=== PATIENT | male | born 1950 | race Caucasian/White ===

== ENCOUNTER 2023-11-26 18:59 | Emergency (ER) | payer MEDICARE ==
[2023-11-26 19:19] VITALS: RESP 18; TEMP 97.8
--- NOTE | 2023-11-26 19:36 | ED ---
Skin/Abscess/FB HPI - General Chief complaint: Skin/Abscess/Foreign Body Stated complaint: Poss abclinda with mersa Time Seen by Provider: 11/26/23 19:34 Source: patient, RN notes reviewed Mode of arrival: ambulatory Limitations: no limitations - History of Present Illness Initial comments: 73 year old male presenting to the ER presenting to the ER with a chief complaint of groin abscesses. Patient was seen by PCP on November 16 and started on Bactrim. Cultures were obtained at that time. Cultures were positive for MRSA. PCP called patient today telling him to report to the ER for possible lancing of abscess. Patient does report an improvement of symptoms. Denies any fevers or chills. - Related Data Previous Rx's Medication Instructions Recorded Cephalexin [Keflex] 500 mg PO Q6HR #40 cap 11/26/23 Allergies Allergy/AdvReac Type Severity Reaction Status Date / Time No Known Allergies Allergy Verified 11/26/23 19:20 Review of Systems ROS Statement: Those systems with pertinent positive or pertinent negative responses have been documented in the HPI. ROS Other: All systems not noted in ROS Statement are negative. Past Medical History Past Medical History: Diabetes Mellitus, Hyperlipidemia, Hypertension, Prostate Disorder Additional Past Medical History / Comment(s): neuropathy History of Any Multi-Drug Resistant Organisms: MRSA Additional Past Surgical History / Comment(s): bilateral knee replacements; Gastric bypass with sleeve; Past Psychological History: No Psychological Hx Reported Smoking Status: Former smoker Past Alcohol Use History: None Reported Past Drug Use History: None Reported General Exam - General Exam Comments Initial Comments: Visual Physical Exam Vital signs reviewed General: Well-appearing, nontoxic, no acute distress. Head: Normocephalic, atraumatic Eyes: PERRLA, EOMI ENT: Airway patent Chest: Nonlabored breathing Skin: No visual rash, normal skin tone Neuro: Alert and oriented 3 Musculoskeletal: No gross abnormalities Limitations: no limitations General appearance: alert, in no apparent distress Respiratory exam: Present: normal lung sounds bilaterally. Absent: respiratory distress, wheezes, rales, rhonchi, stridor Cardiovascular Exam: Present: regular rate, normal rhythm, normal heart sounds. Absent: systolic murmur, diastolic murmur, rubs, gallop, clicks Skin exam: Present: warm, dry, intact, normal color, other (Healed abscess to left groin. No purulent drainage or erythema. Mild purulent drainage to right posterior thigh.) Course Vital Signs 11/26/23 11/26/23 19:14 21:58 Temperature 97.8 F 97.8 F Pulse Rate 67 72 Respiratory 18 18 Rate Blood Pressure 115/72 116/74 O2 Sat by Pulse 94 L 94 L Oximetry Procedures - Incision & Drainage Consent Obtained: verbal consent Indication: abscess Site: lower extremity (right) Size (cm): 2 Anesthetic Used: lidocaine 1%, without epi Amount (mLs): 3 I&D Cleaning Method: Alcohol Wipe Sterile Field Used?: Yes Scalpel Used: #11 Ultrasound used: No Needle Aspiration Performed?: Yes Irrigation Performed?: No I&D Drainage Obtained: Pus, Blood Culture Obtained?: Yes Patient Tolerated Procedure: well Medical Decision Making - Medical Decision Making I performed the quick note portion of this chart. Electronically signed by Brett Edmonds PA-C Was pt. sent in by a medical professional or institution (RAMAN Prescott, CLIENT SERVICES REPRESENTATIVE, urgent care, hospital, or alf...) When possible be specific @ -No Did you speak to anyone other than the patient for history (EMS, parent, family, police, friend...)? What history was obtained from this source @ - aiding in HPI. Did you review nursing and triage notes (agree or disagree)? Why? @ -I reviewed and agree with nursing and triage notes Were old charts reviewed (outside hosp., previous admission, EMS record, old EKG, old radiological studies, urgent care reports/EKG's, alf records)? Report findings @ -No old charts were reviewed Differential Diagnosis (chest pain, altered mental status, abdominal pain women, abdominal pain men, vaginal bleeding, weakness, fever, dyspnea, syncope, headache, dizziness, GI bleed, back pain, seizure, CVA, palpatations, mental health, musculoskeletal)? @ -Cellulitis, abscess, cyst This is not meant to be all-inclusive EKG interpreted by me (3pts min.). @ -None X-rays interpreted by me (1pt min.). @ -None done CT interpreted by me (1pt min.). @ -None done U/S interpreted by me (1pt. min.). @ -None done What testing was considered but not performed or refused? (CT, X-rays, U/S, labs)? Why? @ -None What meds were considered but not given or refused? Why? @ -None Did you discuss the management of the patient with other professionals (professionals i.e. , PA, CLIENT SERVICES REPRESENTATIVE, lab, RT, psych nurse, social media marketing manager, drapery head former, teacher, medical scientific officer, window caser)? Give summary @ -No Was smoking cessation discussed for >3mins.? @ -No Was critical care preformed (if so, how long)? @ -No Were there social determinants of health that impacted care today? How? (Homelessness, low income, unemployed, alcoholism, drug addiction, transportation, low edu. Level, literacy, decrease access to med. care, halfway, rehab)? @ -No Was there de-escalation of care discussed even if they declined (Discuss DNR or withdrawal of care, Hospice)? DNR status @ -No What co-morbidities impacted this encounter? (DM, HTN, Smoking, COPD, CAD, Cancer, CVA, ARF, Chemo, Hep., AIDS, mental health diagnosis, sleep apnea, morbid obesity)? @ -None Was patient admitted / discharged? Hospital course, mention meds given and route, prescriptions, significant lab abnormalities, going to OR and other pertinent info. @ -Discharge. 73-year-old male presented to the ER with a chief complaint of groin abscess. History and physical exam completed. Vitals stable. Exam remarkable for a 2 cm superficial abscess to right posterior thigh. Purulent drainage present. There is also a healed abscess to left groin. No purulent drainage or surrounding erythema. Patient in no signs of acute distress and nontoxic-appearing. I&D performed on posterior leg abscess. Culture obtained. Advised patient to continue taking Bactrim as prescribed. Keflex added. Advise close follow-up with PCP. Strict return parameters discussed. Patient discharged in stable condition. Patient and verbally expressed understanding agree with care plan. Case discussed with ED attending, Dr. Roberts. Undiagnosed new problem with uncertain prognosis? @ -No Drug Therapy requiring intensive monitoring for toxicity (Heparin, Nitro, Insulin, Cardizem)? @ -No Were any procedures done? @ -No Diagnosis/symptom? @ -Abscess Acute, or Chronic, or Acute on Chronic? @ -Acute Uncomplicated (without systemic symptoms) or Complicated (systemic symptoms)? @ -Uncomplicated Side effects of treatment? @ -No Exacerbation, Progression, or Severe Exacerbation? @ -No Poses a threat to life or bodily function? How? (Chest pain, USA, [place], pneumonia, PE, COPD, DKA, ARF, appy, cholecystitis, CVA, Diverticulitis, Homicidal, Suicidal, threat to staff... and all critical care pts) @ -No Disposition Clinical Impression: Abscess Disposition: HOME SELF-CARE Condition: Stable Instructions (If sedation given, give patient instructions): Abscess Incision and Drainage (ED), Abscess (ED) Additional Instructions: Continue taking Bactrim as prescribed. Start taking Keflex as prescribed. Return to the ER for any new or worsening concerns. Follow-up with PCP. Prescriptions: Cephalexin [Keflex] 500 mg PO Q6HR #40 cap Is patient prescribed a controlled substance at d/c from ED?: No Referrals: Nonstaff,Physician [Primary Care Provider] - 1-2 days Time of Disposition: 21:11
[2023-11-26] MEDS: LIDOCAINE 1% INJ 10MG/ML (20 ML MDV) SQ ONE (20:37)
[2023-11-26] MEDS: CEPHALEXIN 500 MG CAP PO STA (21:52)
[2023-11-26 21:59] VITALS: BP 116/74; PULSE 72
== END 2023-11-26 21:58 | disposition home or self-care (01) ==
LOC: EC 18:59
DX: L02.214 Cutaneous abscess of groin (principal); B95.62 Methicillin resistant Staphylococcus aureus infection as the cause of diseases classified elsewhere; Z87.891 Personal history of nicotine dependence
CPT/HCPCS: 87070; 87205; 87077; 87186; 99283; 10060; J2001

== ENCOUNTER 2024-11-12 13:25 | Inpatient (IN) | payer MEDICARE ==
[2024-11-12 13:33] LABS: Glucose,Whole Blood 178 mg/dL (70-110)
--- NOTE | 2024-11-12 13:44 | ED ---
General Adult HPI - General Chief complaint: Recheck/Abnormal Lab/Rx Stated complaint: Weakness Time Seen by Provider: 11/12/24 13:36 Source: patient Mode of arrival: wheelchair - History of Present Illness Initial comments: Dictation was produced using [employer] dictation software. please excuse any grammatical, word or spelling errors. Chief Complaint: 74-year-old male presents with chills History of Present Illness: Patient is a 74-year-old male with multiple comorbidities including diabetes dyslipidemia hypertension. States that since this morning he has had chills. No obvious sick contacts. States that he had similar symptoms in the past after being diagnosed with UTI. Initially went to an urgent care to have his urine tested. States that his urine was found to be clean. He was then referred to the emergency department for further care. Patient N denies s any cough. No shortness of breath. States that he has an ache to his lower back, also headache. States that he gets this whenever he gets sick. No diarrhea. No abdominal pain. No rash The ROS documented in this emergency department record has been reviewed and confirmed by me. Those systems with pertinent positive or negative responses have been documented in the HPI. All other systems are other negative and/or noncontributory. - Related Data Previous Rx's Medication Instructions Recorded Cephalexin [Keflex] 500 mg PO Q6HR #40 cap 11/26/23 Allergies Allergy/AdvReac Type Severity Reaction Status Date / Time vicoden AdvReac Hallucinati Uncoded 11/12/24 13:34 ons Review of Systems ROS Statement: Those systems with pertinent positive or pertinent negative responses have been documented in the HPI. ROS Other: All systems not noted in ROS Statement are negative. Past Medical History Past Medical History: Diabetes Mellitus, Hyperlipidemia, Hypertension, Prostate Disorder Additional Past Medical History / Comment(s): neuropathy History of Any Multi-Drug Resistant Organisms: MRSA Date of last positivie culture/infection: 11/26/23 MDRO Source:: right thigh/groin Additional Past Surgical History / Comment(s): bilateral knee replacements; Anthony antonio bypass with sleeve; Past Psychological History: No Psychological Hx Reported Smoking Status: Former smoker Past Alcohol Use History: None Reported Past Drug Use History: None Reported General Exam - General Exam Comments Initial Comments: PHYSICAL EXAM: General Impression: Alert and oriented x3, not in acute distress, tremulous HEENT: Normocephalic atraumatic, extra-ocular movements intact, pupils equal and reactive to light bilaterally, mucous membranes moist. Cardiovascular: Heart regular rate and rhythm Chest: Able to complete full sentences, no retractions, no tachypnea Abdomen: abdomen soft, non-tender, non-distended, no organomegaly Musculoskeletal: Pulses present and equal in all extremities, no peripheral ricarda ma Motor: no focal deficits noted Neurological: CN II-XII grossly intact, no focal motor or sensory deficits noted Skin: Intact with no visualized rashes Psych: Normal affect and mood Course Vital Signs 11/12/24 11/12/24 11/12/24 13:26 15:00 15:07 Temperature 100.8 F H 100.1 F H Pulse Rate 133 H 114 H Respiratory 38 H 22 Rate Blood Pressure 177/63 120/63 O2 Sat by Pulse 96 95 Oximetry EKG Findings - EKG Comments: EKG Findings:: My EKG interpretation: Ventricular rate 129, sinus tachycardia,. 191, cures 1 2, QTc 452. No UT prolongation, no QTC prolongation, no ST or T- wave changes noted. Overall, this EKG is unremarkable Medical Decision Making - Medical Decision Making Was pt. sent in by a medical professional or institution (, PA, FIRE TECHNICIAN, urgent care, hospital, or penitentiary...) When possible be specific @ -No Did you speak to anyone other than the patient for history (EMS, parent, family, police, friend...)? What history was obtained from this source @ -No Did you review nursing and triage notes (agree or disagree)? Why? @ -I reviewed and agree with nursing and triage notes Were old charts reviewed (outside hosp., previous admission, EMS record, old EKG, old radiological studies, urgent care reports/EKG's, penitentiary records)? Report findings @ -No old charts were reviewed Differential Diagnosis (chest pain, altered mental status, abdominal pain women, abdominal pain men, vaginal bleeding, musculoskeletal, weakness, fever, dyspnea, syncope, headache, dizziness, GI bleed, back pain, seizure, CVA, palpatations, mental health)? @ -Differential Fever: Pneumonia, viral URI, endocarditis, myocarditis, pericarditis, otitis, sinusitis, peritonsillar Abscess, retropharyngeal Abscess, epiglottitis, peritonitis, appendicitis, Ethel cystitis, diverticulitis, hepatitis, colitis, UTI, PID, TOA, pyelonephritis, prostatitis, epididymitis, meningitis, encephalitis, pulmonary embolism, CVA, thyroid storm, pancreatitis, adrenal crisis, cavernous sinus thrombosis, this is not meant to be an all-inclusive list. EKG interpreted by me (3pts min.). @ -See above X-rays interpreted by me (1pt min.). @ -Chest x-ray is nonacute CT interpreted by me (1pt min.). @ -None done U/S interpreted by me (1pt. min.). @ -None done What testing was considered but not performed or refused? (CT, X-rays, U/S, labs)? Why? @ -None What meds were considered but not given or refused? Why? @ -None Was smoking cessation discussed for >3mins.? @ -No Were there social determinants of health that impacted care today? How? (Homelessness, low income, unemployed, alcoholism, drug addiction, transportation, low edu. Level, literacy, decrease access to med. care, long term, rehab)? @ -No Was there de-escalation of care discussed even if they declined (Discuss DNR or withdrawal of care, Hospice)? DNR status @ -No What co-morbidities impacted this encounter? (DM, HTN, Smoking, COPD, CAD, Cancer, CVA, ARF, Chemo, Hep., AIDS, mental health diagnosis, sleep apnea, morbid obesity)? @ -Diabetes Was patient admitted / discharged? Hospital course, mention meds given and route, prescriptions, significant lab abnormalities, going to OR and other pertinent info. @ -74-year-old male presents emergency department constitutional symptoms. Low-grade temperature 100.8 heart rate 133 and respiratory rate of 38. Does not have any focal exam findings or focal complaints. Laboratory evaluation obtained showing leukocytosis of 16. Lactic acidosis 3.5. Urinalysis unremarkable. Viral testing negative. Chest x-ray nonacute. Clinical presentation consistent with SIRS. There is some concern of bacteremia. Patient covered broad-spectrum antibiotics. Case discussed with hospitalist for admission. Patient does not meet criteria for severe sepsis given that lactic acid is below 4 patient not hypotensive. Did you discuss the management of the patient with other professionals (anjana stanford i.e., Dr., PA, FIRE TECHNICIAN, lab, RT, psych nurse, social studies department chair, outboard motor tester, teacher, ethics officer, correctional case records supervisor)? Give summary @ -See above Was critical care preformed (if so, how long)? @ -No Undiagnosed new problem with uncertain prognosis? @ -No Drug Therapy requiring intensive monitoring for toxicity (Heparin, Nitro, Insulin, Cardizem)? @ -No Were any procedures done? @ -No Diagnosis/symptom? Acute, or Chronic, or Acute on Chronic? Uncomplicated (without systemic symptoms) or Complicated (systemic symptoms)? @ -SIRS/sepsis Side effects of treatment? @ -No Exacerbation, Progression, or Severe Exacerbation? @ -No Poses a threat to life or bodily function? How? (Chest pain, USA, [place], pneumonia, PE, COPD, DKA, ARF, appy, cholecystitis, CVA, Diverticulitis, Homicidal, Suicidal, threat to staff... and all critical care pts) @ -yes - Lab Data Result diagrams: 11/12/24 14:03 11/12/24 14:03 Lab Results 11/12/24 11/12/24 11/12/24 Range/Units 13:30 13:31 14:03 WBC 16.49 H (4.50-10.00) 10*3/uL RBC 4.41 (4.40-5.60) 10*6/uL Hgb 14.7 (13.0-17.0) g/dL Hct 43.6 (39.6-50.0) % MCV 98.9 H (80.0-97.0) fL MCH 33.3 H (27.0-32.0) pg MCHC 33.7 (32.0-37.0) g/dL Plt Count 243 (140-440) 10*3/uL MPV 8.8 L (9.5-12.2) fL Immature Gran % (Auto) 0.4 % Neutrophils % 93.0 % Lymphocytes % 2.7 % Monocytes % 3.2 % Eosinophils % 0.3 % Basophils % 0.4 % Immature Gran # 0.07 H (0.00-0.04) 10*3/uL Neutrophils # 15.34 H (1.80-7.70) 10*3/uL Lymphocytes # 0.44 L (0.90-5.00) 10*3/uL Monocytes # 0.52 (0.20-1.00) 10*3/uL Eosinophils # 0.05 (0.04-0.35) 10*3/uL Basophils # 0.07 (0.00-0.10) 10*3/uL PT (10.0-12.5) sec INR (<1.2) APTT (22.0-30.0) sec Sodium (137-145) mmol/L Potassium (3.5-5.1) mmol/L Chloride (98-107) mmol/L Carbon Dioxide (22-30) mmol/L Anion Gap mmol/L BUN (9-20) mg/dL Creatinine (0.66-1.25) mg/dL Est GFR (CKD-EPI)AfAm (>60 ml/min/1.73 sqM) Est GFR (CKD-EPI)NonAf (>60 ml/min/1.73 sqM) Glucose (74-99) mg/dL POC Glucose (mg/dL) 178 H (70-110) mg/dL POC Glu Assembler For Puller Over Machine ID [employer] Plasma Lactic Acid Fan (0.7-2.0) mmol/L Calcium (8.4-10.2) mg/dL Total Bilirubin (0.2-1.3) mg/dL AST (17-59) U/L ALT (4-49) U/L Alkaline Phosphatase (38-126) U/L Total Protein (6.3-8.2) g/dL Albumin (3.5-5.0) g/dL Urine Color Light Yellow Urine Appearance Clear (Clear) Urine pH 6.5 (5.0-8.0) Ur Specific [place] 1.014 (1.001-1.035) Urine Protein Negative (Negative) Urine Glucose (UA) Negative (Negative) Urine Ketones Negative (Negative) Urine Blood Trace H (Negative) Urine Nitrite Negative (Negative) Urine Bilirubin Negative (Negative) Urine Urobilinogen <2.0 (<2.0) mg/dL Ur Leukocyte Esterase Negative (Negative) Urine RBC 4 (0-5) /hpf Urine WBC <1 (0-5) /hpf Ur Squamous Epith Cells <1 (0-4) /hpf Influenza Type A (PCR) (Not Detectd) Influenza Type B (PCR) (Not Detectd) RSV (PCR) (Not Detectd) SARS-CoV-2 (PCR) (Not Detectd) 11/12/24 11/12/24 11/12/24 Range/Units 14:03 14:03 14:03 WBC (4.50-10.00) 10*3/uL RBC (4.40-5.60) 10*6/uL Hgb (13.0-17.0) g/dL Hct (39.6-50.0) % MCV (80.0-97.0) fL MCH (27.0-32.0) pg MCHC (32.0-37.0) g/dL Plt Count (140-440) 10*3/uL MPV (9.5-12.2) fL Immature Gran % (Auto) % Neutrophils % % Lymphocytes % % Monocytes % % Eosinophils % % Basophils % % Immature Gran # (0.00-0.04) 10*3/uL Neutrophils # (1.80-7.70) 10*3/uL Lymphocytes # (0.90-5.00) 10*3/uL Monocytes # (0.20-1.00) 10*3/uL Eosinophils # (0.04-0.35) 10*3/uL Basophils # (0.00-0.10) 10*3/uL PT 12.1 (10.0-12.5) sec INR 1.1 (<1.2) APTT 21.6 L (22.0-30.0) sec Sodium 134 L (137-145) mmol/L Potassium 3.7 (3.5-5.1) mmol/L Chloride 96 L (98-107) mmol/L Carbon Dioxide 24 (22-30) mmol/L Anion Gap 14 mmol/L BUN 16 (9-20) mg/dL Creatinine 0.75 (0.66-1.25) mg/dL Est GFR (CKD-EPI)AfAm >90 (>60 ml/min/1.73 sqM) Est GFR (CKD-EPI)NonAf 89 (>60 ml/min/1.73 sqM) Glucose 199 H (74-99) mg/dL POC Glucose (mg/dL) (70-110) mg/dL POC Glu Assembler For Puller Over Machine ID Plasma Lactic Acid Fan 3.5 H* (0.7-2.0) mmol/L Calcium 10.2 (8.4-10.2) mg/dL Total Bilirubin 1.3 (0.2-1.3) mg/dL AST 40 (17-59) U/L ALT 29 (4-49) U/L Alkaline Phosphatase 127 H (38-126) U/L Total Protein 7.9 (6.3-8.2) g/dL Albumin 4.4 (3.5-5.0) g/dL Urine Color Urine Appearance (Clear) Urine pH (5.0-8.0) Ur Specific [place] (1.001-1.035) Urine Protein (Negative) Urine Glucose (UA) (Negative) Urine Ketones (Negative) Urine Blood (Negative) Urine Nitrite (Negative) Urine Bilirubin (Negative) Urine Urobilinogen (<2.0) mg/dL Ur Leukocyte Esterase (Negative) Urine RBC (0-5) /hpf Urine WBC (0-5) /hpf Ur Squamous Epith Cells (0-4) /hpf Influenza Type A (PCR) (Not Detectd) Influenza Type B (PCR) (Not Detectd) RSV (PCR) (Not Detectd) SARS-CoV-2 (PCR) (Not Detectd) 11/12/24 Range/Units 14:03 WBC (4.50-10.00) 10*3/uL RBC (4.40-5.60) 10*6/uL Hgb (13.0-17.0) g/dL Hct (39.6-50.0) % MCV (80.0-97.0) fL MCH (27.0-32.0) pg MCHC (32.0-37.0) g/dL Plt Count (140-440) 10*3/uL MPV (9.5-12.2) fL Immature Gran % (Auto) % Neutrophils % % Lymphocytes % % Monocytes % % Eosinophils % % Basophils % % Immature Gran # (0.00-0.04) 10*3/uL Neutrophils # (1.80-7.70) 10*3/uL Lymphocytes # (0.90-5.00) 10*3/uL Monocytes # (0.20-1.00) 10*3/uL Eosinophils # (0.04-0.35) 10*3/uL Basophils # (0.00-0.10) 10*3/uL PT (10.0-12.5) sec INR (<1.2) APTT (22.0-30.0) sec Sodium (137-145) mmol/L Potassium (3.5-5.1) mmol/L Chloride (98-107) mmol/L Carbon Dioxide (22-30) mmol/L Anion Gap mmol/L BUN (9-20) mg/dL Creatinine (0.66-1.25) mg/dL Est GFR (CKD-EPI)AfAm (>60 ml/min/1.73 sqM) Est GFR (CKD-EPI)NonAf (>60 ml/min/1.73 sqM) Glucose (74-99) mg/dL POC Glucose (mg/dL) (70-110) mg/dL POC Glu Assembler For Puller Over Machine ID Plasma Lactic Acid Fan (0.7-2.0) mmol/L Calcium (8.4-10.2) mg/dL Total Bilirubin (0.2-1.3) mg/dL AST (17-59) U/L ALT (4-49) U/L Alkaline Phosphatase (38-126) U/L Total Protein (6.3-8.2) g/dL Albumin (3.5-5.0) g/dL Urine Color Urine Appearance (Clear) Urine pH (5.0-8.0) Ur Specific [place] (1.001-1.035) Urine Protein (Negative) Urine Glucose (UA) (Negative) Urine Ketones (Negative) Urine Blood (Negative) Urine Nitrite (Negative) Urine Bilirubin (Negative) Urine Urobilinogen (<2.0) mg/dL Ur Leukocyte Esterase (Negative) Urine RBC (0-5) /hpf Urine WBC (0-5) /hpf Ur Squamous Epith Cells (0-4) /hpf Influenza Type A (PCR) Not Detected (Not Detectd) Influenza Type B (PCR) Not Detected (Not Detectd) RSV (PCR) Not Detected (Not Detectd) SARS-CoV-2 (PCR) Not Detected (Not Detectd) Disposition Clinical Impression: SIRS (systemic inflammatory response syndrome) Disposition: ADMITTED IP TO THIS [facility] Condition: Fair Referrals: Nonstaff,Physician [Primary Care Provider] - 1-2 days Decision Time: 15:49
[2024-11-12 13:45] LABS: Bilirubin,Urine Negative (Negative); Blood,Urine Trace (Negative); Color,Urine Light Yellow; Glucose,Urine (UA) Negative (Negative); Ketones,Urine Negative (Negative); Leukocyte Esterase,Urine Negative (Negative); Nitrite,Urine Negative (Negative); PH, Urine 6.5 (5.0-8.0); Protein,Urine Negative (Negative); RBC,Urine 4 /hpf (0-5); Specific Gravity,Urine 1.014 (1.001-1.035); Squamous Epithelial Cell,Urine <1 /hpf (0-4); Urobilinogen,Urine <2.0 mg/dL (<2.0); WBC,Urine <1 /hpf (0-5)
[2024-11-12] MEDS: ACETAMINOPHEN TAB 500 MG TAB PO STA (14:01)
[2024-11-12] MEDS: LACTATED RINGERS 1,000 ML IV SCH ×3 (14:01→18:01)
[2024-11-12 14:08] LABS: Basophils # (A) 0.07 10*3/uL (0.00-0.10); Basophils % (A) 0.4 %; Eosinophils # (A) 0.05 10*3/uL (0.04-0.35); Eosinophils % (A) 0.3 %; HCT 43.6 % (39.6-50.0); HGB 14.7 g/dL (13.0-17.0); Lymphocytes # (A) 0.44 10*3/uL (0.90-5.00); Lymphocytes % (A) 2.7 %; MCH 33.3 pg (27.0-32.0); MCHC 33.7 g/dL (32.0-37.0); MCV 98.9 fL (80.0-97.0); Monocytes # (A) 0.52 10*3/uL (0.20-1.00); Monocytes % (A) 3.2 %; Neutrophils # (A) 15.34 10*3/uL (1.80-7.70); Neutrophils % (A) 93.0 %; Platelet Count 243 10*3/uL (140-440); RBC 4.41 10*6/uL (4.40-5.60); RDW 12.9 % (11.5-14.5); WBC 16.49 10*3/uL (4.50-10.00)
[2024-11-12 14:23] LABS: ALT 29 U/L (4-49); AST 40 U/L (17-59); African American GFR (CKD) >90 (>60 ml/min/1.73 sqM); Albumin 4.4 g/dL (3.5-5.0); Alkaline Phosphatase 127 U/L (38-126); Anion Gap 14 mmol/L; Blood Urea Nitrogen 16 mg/dL (9-20); Calcium 10.2 mg/dL (8.4-10.2); Carbon Dioxide 24 mmol/L (22-30); Chloride 96 mmol/L (98-107); Glucose 199 mg/dL (74-99); INR 1.1 (<1.2); Non-African American GFR(CKD) 89 (>60 ml/min/1.73 sqM); Partial Thromboplastin Time 21.6 sec (22.0-30.0); Potassium 3.7 mmol/L (3.5-5.1); Prothrombin Time 12.1 sec (10.0-12.5); Sodium 134 mmol/L (137-145); Total Protein 7.9 g/dL (6.3-8.2)
[2024-11-12 14:44] LABS: RSV Not Detected (Not Detectd)
--- NOTE | 2024-11-12 15:34 | XR ---
EXAMINATION TYPE: XR chest 2V DATE OF EXAM: 11/12/2024 2:55 PM COMPARISON: None CLINICAL INDICATION: Male, 74 years old with history of Fever; [facility] TECHNIQUE: XR chest 2V Frontal and lateral views of the chest. FINDINGS: Lungs/Pleura: There is no evidence of pleural effusion, focal consolidation, or pneumothorax. Pulmonary vascularity: Unremarkable. Heart/mediastinum: Cardiomediastinal silhouette is unremarkable. Musculoskeletal: No acute osseous pathology. IMPRESSION: No acute cardiopulmonary disease/process. [facility], , 11/12/2024 3:32 PM
[2024-11-12] MEDS ORDERED: VANCOMYCIN IV PER PHARMACY 1 EACH MISC MISCELLANE PRN (15:39)
[2024-11-12] MEDS ORDERED: NALOXONE 0.4 MG/ML 1 ML VIAL IV PRN (15:46)
[2024-11-12] MEDS ORDERED: ACETAMINOPHEN TAB 325 MG TAB PO PRN (15:46)
[2024-11-12] MEDS ORDERED: PIPERACILLIN-TAZOBACTAM 3.375 GM in SODIUM CHLORIDE 0.9% 100 ML IVPB SCH (16:00)
[2024-11-12] MEDS ORDERED: SODIUM CHLORIDE 0.9% 1,000 ML IV SCH (16:00)
[2024-11-12] MEDS ORDERED: DEXTROSE 50% SYRINGE 50 ML IVP PRN ×2 (16:05)
--- NOTE | 2024-11-12 16:45 | P.HPIM ---
History of Present Illness H&P Date: 11/12/24 Patient is a 74 years old male with past medical history of type II DM on Ozempic last A1c 5.7 reportedly, HLD, morbid obesity BMI 47 HTN, BPH, history of bariatric surgery, MRSA infection, history of groin abscess 11/2023, who presented to the ER for feeling sick, chills. Earlier he was evaluated in the urgent care where his urine was tested and was negative for UTI, patient was sent to the ER. He only complains of chills that started this morning. Some associated lower back pain , that is now resolved but he has discomfort from sitting in a bed. no abdominal pain, dysuria, nausea,vo miting, constipation, diarrhea, skin rashes, joint pain, SOB, CP. No recent traveling, swimming. He does report that he does not always feel the origin to urinate, when he does urinate, he only can get one 1-1/2 caps of urine approximately. He does report that he had MRSA infection in his groin with some abscesses, right now does not have any symptoms or discomfort in that area, on exam there was no signs of lymphadenopathy or skin damage, abscesses. He is currently getting treatment for MRSA colonization with his PCP. Patient was febrile 100.8, tachycardic 130s, blood pressure was elevated 127/63, SpO2 92% on room air. Blood work revealed leukocytosis 16.4, normal hemoglobin and platelet count, sodium 134, normal potassium, bicarb 24, creatinine 0.75, glucose elevated 189, lactic acid 3.5, AST and ALT WNL, UA negative for UTI, viral panel negative. Chest x-ray showed no acute process. Patient was provided with broad-spectrum antibiotics vancomycin and Zosyn, admitted for further management of sepsis with unknown source. Antibiotics changed to vancomycin plus cefepime, will provide with additional 2 L of LR and LR at 125 cc/h for 1 more liter to complete sepsis fluid protocol given that patient's blood pressure was elevated on admission. Pertinent positives and negatives as discussed in HPI, a complete review of systems was performed and all other systems are negative. Patient seen and examined at bedside. Vital signs reviewed General: nontoxic, no distress, appears at stated age, morbidly obese Derm: warm, dry Head: atraumatic, normocephalic, symmetric Eyes: EOMI, no lid lag, anicteric sclera, pupils equal round reactive to light ENT: Nose and ears atraumatic Neck: No thyromegaly, supple Mouth: no lip lesion, mucus membranes moist Cardiovascular: S1S2 reg, no murmur, no edema Lungs: clear to auscultation bilateral, no rhonchi, no rales, no wheeze, no acc essory muscle use Abdominal: soft, nontender to palpation, no guarding, no appreciable organomegaly Ext: no gross muscle atrophy, muscle strength muscle strength 5 out of 5 in all 4 extremities, no contractures Neuro: CN II-XII grossly intact Psych: Alert, oriented, appropriate affect Assessment/Plan: Sepsis present on admission with fever, tachycardia, leukocytosis, elevated lact ic acid, without septic shock, no clear source of infection History of MRSA infection - Continue pharmacy to dose vancomycin, ordered cefepime 2 g every 8 hours SOT 11/12/2024 -Follow-up urine and blood cultures -MRSA swab and procalcitonin ordered stat -Telemetry -Tylenol 650 every 6 hours for fever and pain -Daily CBC and BMP Type II DM: Ordered Accu-Cheks, hypoglycemia precautions, SSI Hypertension, resume home meds once reconciled Hyperlipidemia: Not on medications Morbid obesity BMI 47, recommend structured weight loss program, currently on Ozempic, losing weight The patient is admitted with an anticipated greater than 2 midnight stay as inpatient status for evaluation of sepsis. CODE STATUS: Full code DVT prophylaxis: Lovenox Anticipated discharge date: TBD Anticipated discharge place: [facility] A total of 40minutes was spent on the care of this complex patient more than 50% of the time was spent in counseling and care coordination. Past Medical History Past Medical History: Diabetes Mellitus, Hyperlipidemia, Hypertension, Prostate Disorder Additional Past Medical History / Comment(s): neuropathy History of Any Multi-Drug Resistant Organisms: MRSA Date of last positivie culture/infection: 11/26/23 MDRO Source:: right thigh/groin Additional Past Surgical History / Comment(s): bilateral knee replacements; Gastric bypass with sleeve; Past Psychological History: No Psychological Hx Reported Smoking Status: Former smoker Past Alcohol Use History: None Reported Past Drug Use History: None Reported Medications and Allergies Home Medications Medication Instructions Recorded Confirmed Type Cephalexin [Keflex] 500 mg PO Q6HR #40 cap 11/26/23 Rx Allergies Allergy/AdvReac Type Severity Reaction Status Date / Time vicoden AdvReac Hallucinati Uncoded 11/12/24 13:34 ons Physical Exam Vitals: Vital Signs Temp Pulse Resp BP Pulse Ox 11/12/24 15:07 100.1 F H 11/12/24 15:00 114 H 22 120/63 95 11/12/24 13:26 100.8 F H 133 H 38 H 177/63 96 Intake and Output 11/12/24 11/12/24 11/12/24 06:59 14:59 22:59 Other: Weight 140.614 kg Results CBC & Chem 7: 11/12/24 14:03 11/12/24 14:03 Labs: Abnormal Lab Results - Last 24 Hours (Table) 11/12/24 11/12/24 11/12/24 Range/Units 13:30 13:31 14:03 WBC 16.49 H (4.50-10.00) 10*3/uL MCV 98.9 H (80.0-97.0) fL MCH 33.3 H (27.0-32.0) pg MPV 8.8 L (9.5-12.2) fL Immature Gran # 0.07 H (0.00-0.04) 10*3/uL Neutrophils # 15.34 H (1.80-7.70) 10*3/uL Lymphocytes # 0.44 L (0.90-5.00) 10*3/uL APTT (22.0-30.0) sec Sodium (137-145) mmol/L Chloride (98-107) mmol/L Glucose (74-99) mg/dL POC Glucose (mg/dL) 178 H (70-110) mg/dL Plasma Lactic Acid Fan (0.7-2.0) mmol/L Alkaline Phosphatase (38-126) U/L Urine Blood Trace H (Negative) 11/12/24 11/12/24 11/12/24 Range/Units 14:03 14:03 14:03 WBC (4.50-10.00) 10*3/uL MCV (80.0-97.0) fL MCH (27.0-32.0) pg MPV (9.5-12.2) fL Immature Gran # (0.00-0.04) 10*3/uL Neutrophils # (1.80-7.70) 10*3/uL Lymphocytes # (0.90-5.00) 10*3/uL APTT 21.6 L (22.0-30.0) sec Sodium 134 L (137-145) mmol/L Chloride 96 L (98-107) mmol/L Glucose 199 H (74-99) mg/dL POC Glucose (mg/dL) (70-110) mg/dL Plasma Lactic Acid Fan 3.5 H* (0.7-2.0) mmol/L Alkaline Phosphatase 127 H (38-126) U/L Urine Blood (Negative)
[2024-11-12] MEDS: CEFEPIME 2 GM in SODIUM CHLORIDE 0.9% 100 ML IVPB SCH (16:46)
[2024-11-12 17:14] LABS: Glucose,Whole Blood 163 mg/dL (70-110)
[2024-11-12] MEDS: INSULIN LISPRO (HumaLOG) 100 UNIT/ML 10 mL VL SQ SCH (17:20)
[2024-11-12] MEDS: VANCOMYCIN 2,000 MG in SODIUM CHLORIDE 0.9% 500 ML 500 ML IVPB ONE (18:00)
[2024-11-12 21:03] LABS: Glucose,Whole Blood 140 mg/dL (70-110)
[2024-11-12] MEDS: PREGABALIN 75 MG CAP PO SCH (21:58)
[2024-11-13] MEDS: VANCOMYCIN 2,000 MG in SODIUM CHLORIDE 0.9% 500 ML 500 ML IVPB SCH (06:22)
[2024-11-13 06:58] LABS: Glucose,Whole Blood 127 mg/dL (70-110)
[2024-11-13] MEDS ORDERED: PREGABALIN 75 MG CAP PO SCH (09:00)
[2024-11-13 09:19] LABS: Basophils # (A) 0.07 X 10*3/uL (0.00-0.10); Basophils % (A) 0.4 %; Eosinophils # (A) 0.01 X 10*3/uL (0.04-0.35); Eosinophils % (A) 0.1 %; HCT 43.5 % (39.6-50.0); HGB 13.8 g/dL (13.0-17.0); Immature Grans, Automated 0.50 %; Lymphocytes # (A) 0.52 X 10*3/uL (0.90-5.00); Lymphocytes % (A) 2.7 %; MCH 32.4 pg (27.0-32.0); MCHC 31.7 g/dL (32.0-37.0); MCV 102.1 FL (80.0-97.0); Monocytes # (A) 0.69 X 10*3/uL (0.20-1.00); Monocytes % (A) 3.6 %; NRBC Per 100 WBC 0 X 10*3/uL (0.00-0.01); Neutrophils # (A) 17.62 X 10*3/uL (1.80-7.70); Neutrophils % (A) 92.7 %; Platelet Count 226 X 10*3/uL (140-440); RBC 4.26 X 10*6/uL (4.40-5.60); RDW 13.6 % (11.5-14.5); WBC 19.01 X 10*3/uL (4.50-10.00)
[2024-11-13 10:12] LABS: ALT 28 U/L (10-49); AST 32 U/L (14-35); Albumin 3.8 g/dL (3.8-4.9); Albumin/Globulin Ratio 1.27 Ratio (1.60-3.17); Alkaline Phosphatase 89 U/L (41-126); Anion Gap 13.90 mmol/L (4.00-12.00); BUN/Creat Ratio 14.10 Ratio (12.00-20.00); Blood Urea Nitrogen 14.1 mg/dL (9.0-27.0); Calcium 9.4 mg/dL (8.7-10.3); Carbon Dioxide 26.1 mmol/L (21.6-31.8); Chloride 96 mmol/L (96-109); Globulin 3.0 g/dL (1.6-3.3); Glucose 133 mg/dL (70-110); Potassium 3.6 mmol/L (3.5-5.5); Sodium 136 mmol/L (135-145); Total Protein 6.8 g/dL (6.2-8.2)
[2024-11-13 11:52] LABS: Glucose,Whole Blood 113 mg/dL (70-110)
--- NOTE | 2024-11-13 13:20 | P.PN ---
Subjective Progress Note Date: 11/13/24 Hospital Course: Patient is a 74 years old male with past medical history of type II DM on Ozem pic last A1c 5.7 reportedly, HLD, morbid obesity BMI 47 HTN, BPH, history of bariatric surgery, MRSA infection, history of groin abscess 11/2023, who presented to the ER for feeling sick, chills. Earlier he was evaluated in the urgent care where his urine was tested and was negative for UTI, patient was sent to the ER. He only complains of chills that started this morning. Some associated lower back pain , that is now resolved but he has discomfort from sitting in a bed. no abdominal pain, dysuria, nausea,vomiting, constipation, diarrhea, skin rashes, joint pain, SOB, CP. No recent traveling, swimming. He does report that he does not always feel the origin to urinate, when he does urinate, he only can get one 1-1/2 caps of urine approximately. He does report that he had MRSA infection in his groin with some abscesses, right now does not have any symptoms or discomfort in that area, on exam there was no signs of lymphadenopathy or skin damage, abscesses. He is currently getting treatment for MRSA colonization with his PCP. Patient was febrile 100.8, tachycardic 130s, blood pressure was elevated 127/63, SpO2 92% on room air. Blood work revealed leukocytosis 16.4, normal hemoglobin and platelet count, sodium 134, normal potassium, bicarb 24, creatinine 0.75, glucose elevated 189, lactic acid 3.5, AST and ALT WNL, UA negative for UTI, viral panel negative. Chest x-ray showed no acute process. Patient was provided with broad-spectrum antibiotics vancomycin and Zosyn, admitted for further management of sepsis with unknown source. Antibiotics changed to vancomycin plus cefepime, will provide with additional 2 L of LR and LR at 125 cc/h for 1 more liter to complete sepsis fluid protocol given that patient's blood pressure was elevated on admission. 11/13: Seen examined at bedside, patient feels well and does not have any active complaints. States that while in the ER his temperature was 100.7, however he did not feel the temperature and 1 hour later it was rechecked and was 98.0 without Tylenol. Heart rate in the 80s, BP 120 over 50s. He is on room air. WBC trending up 19.0, hemoglobin 13.8, platelet count normal, sodium normal, potassium normal, creatinine studies normal, glucose controlled, lactic acid normalized, procalcitonin elevated 1.5. Blood cultures growing Streptococcus agalactiae, MRSA swabs pending, urine cultures pending, will continue with b road-spectrum antibiotics for now. Pertinent positives and negatives as discussed above, a complete review of systems was performed and all other systems are negative. Vitals Signs Reviewed. General: nontoxic, no distress, appears at stated age, morbidly obese Derm: warm, dry Head: atraumatic, normocephalic, symmetric Eyes: EOMI, no lid lag, anicteric sclera, pupils equal round reactive to light ENT: Nose and ears atraumatic Neck: No thyromegaly, supple Mouth: no lip lesion, mucus membranes moist Cardiovascular: S1S2 reg, no murmur, no edema Lungs: clear to auscultation bilateral, no rhonchi, no rales, no wheeze, no accessory muscle use Abdominal: soft, nontender to palpation, no guarding, no appreciable organomegaly Ext: no gross muscle atrophy, muscle strength muscle strength 5 out of 5 in all 4 extremities, no contractures Neuro: CN II-XII grossly intact Psych: Alert, oriented, appropriate affect Assessment and Plan: Sepsis present on admission with fever, tachycardia, leukocytosis, elevated lactic acid, without septic shock, no clear source of infection Strep agalactiae bacteremia History of MRSA infection - Continue pharmacy to dose vancomycin, ordered cefepime 2 g every 8 hours SOT 11/12/2024 -Follow-up urine and blood cultures -MRSA swab pending, procalcitonin as above -Telemetry -Tylenol 650 every 6 hours for fever and pain -Daily CBC and BMP Type II DM: Ordered Accu-Cheks, hypoglycemia precautions, SSI Hypertension, resume home meds once reconciled Hyperlipidemia: Not on medications Morbid obesity BMI 47, recommend structured weight loss program, currently on Ozempic, losing weight CODE STATUS: Full code DVT prophylaxis: Lovenox Anticipated discharge date: TBD Anticipated discharge place: TBD Objective - Vital Signs Vital signs: Vital Signs Temp 97.9 F 11/13/24 07:20 Pulse 88 11/13/24 07:20 Resp 17 11/13/24 07:20 BP 107/66 11/13/24 07:20 Pulse Ox 94 L 11/13/24 07:20 FiO2 Intake & Output 11/12/24 11/13/24 11/13/24 18:59 06:59 18:59 Intake Total 500 Balance 500 Weight 140.614 kg 140.614 kg Intake: Intake, IV Titration 500 Amount Vancomycin 2,000 mg In 500 Sodium Chloride 0.9% 500 ml 500 ml @ 167 mls/hr IVPB Q12H [facility] Rx#: [id number] - Labs CBC & Chem 7: 11/13/24 02:48 11/13/24 02:48 Labs: Abnormal Lab Results - Last 24 Hours (Table) 11/12/24 11/12/24 11/12/24 Range/Units 13:30 13:31 14:03 WBC 16.49 H (4.50-10.00) 10*3/uL RBC (4.40-5.60) X 10*6/uL MCV 98.9 H (80.0-97.0) fL MCH 33.3 H (27.0-32.0) pg MCHC (32.0-37.0) g/dL MPV 8.8 L (9.5-12.2) fL Immature Gran # 0.07 H (0.00-0.04) 10*3/uL Neutrophils # 15.34 H (1.80-7.70) 10*3/uL Lymphocytes # 0.44 L (0.90-5.00) 10*3/uL Eosinophils # (0.04-0.35) X 10*3/uL APTT (22.0-30.0) sec Sodium (137-145) mmol/L Chloride (98-107) mmol/L Anion Gap (4.00-12.00) mmol/L Glucose (74-99) mg/dL POC Glucose (mg/dL) 178 H (70-110) mg/dL Hemoglobin A1c (<=6.0) % Plasma Lactic Acid Fan (0.7-2.0) mmol/L Alkaline Phosphatase (38-126) U/L Albumin/Globulin Ratio (1.60-3.17) Ratio Procalcitonin (0.02-0.50) ng/mL Urine Blood Trace H (Negative) 11/12/24 11/12/24 11/12/24 Range/Units 14:03 14:03 14:03 WBC (4.50-10.00) 10*3/uL RBC (4.40-5.60) X 10*6/uL MCV (80.0-97.0) fL MCH (27.0-32.0) pg MCHC (32.0-37.0) g/dL MPV (9.5-12.2) fL Immature Gran # (0.00-0.04) 10*3/uL Neutrophils # (1.80-7.70) 10*3/uL Lymphocytes # (0.90-5.00) 10*3/uL Eosinophils # (0.04-0.35) X 10*3/uL APTT 21.6 L (22.0-30.0) sec Sodium 134 L (137-145) mmol/L Chloride 96 L (98-107) mmol/L Anion Gap (4.00-12.00) mmol/L Glucose 199 H (74-99) mg/dL POC Glucose (mg/dL) (70-110) mg/dL Hemoglobin A1c (<=6.0) % Plasma Lactic Acid Fan 3.5 H* (0.7-2.0) mmol/L Alkaline Phosphatase 127 H (38-126) U/L Albumin/Globulin Ratio (1.60-3.17) Ratio Procalcitonin (0.02-0.50) ng/mL Urine Blood (Negative) 11/12/24 11/12/24 11/12/24 Range/Units 16:55 16:55 16:55 WBC (4.50-10.00) 10*3/uL RBC (4.40-5.60) X 10*6/uL MCV (80.0-97.0) fL MCH (27.0-32.0) pg MCHC (32.0-37.0) g/dL MPV (9.5-12.2) fL Immature Gran # (0.00-0.04) 10*3/uL Neutrophils # (1.80-7.70) 10*3/uL Lymphocytes # (0.90-5.00) 10*3/uL Eosinophils # (0.04-0.35) X 10*3/uL APTT (22.0-30.0) sec Sodium (137-145) mmol/L Chloride (98-107) mmol/L Anion Gap (4.00-12.00) mmol/L Glucose (74-99) mg/dL POC Glucose (mg/dL) (70-110) mg/dL Hemoglobin A1c 6.3 H (<=6.0) % Plasma Lactic Acid Fan 3.2 H* (0.7-2.0) mmol/L Alkaline Phosphatase (38-126) U/L Albumin/Globulin Ratio (1.60-3.17) Ratio Procalcitonin 1.56 H (0.02-0.50) ng/mL Urine Blood (Negative) 11/12/24 11/12/24 11/12/24 Range/Units 17:13 19:41 21:01 WBC (4.50-10.00) 10*3/uL RBC (4.40-5.60) X 10*6/uL MCV (80.0-97.0) fL MCH (27.0-32.0) pg MCHC (32.0-37.0) g/dL MPV (9.5-12.2) fL Immature Gran # (0.00-0.04) 10*3/uL Neutrophils # (1.80-7.70) 10*3/uL Lymphocytes # (0.90-5.00) 10*3/uL Eosinophils # (0.04-0.35) X 10*3/uL APTT (22.0-30.0) sec Sodium (137-145) mmol/L Chloride (98-107) mmol/L Anion Gap (4.00-12.00) mmol/L Glucose (74-99) mg/dL POC Glucose (mg/dL) 163 H 140 H (70-110) mg/dL Hemoglobin A1c (<=6.0) % Plasma Lactic Acid Fan 2.1 H* (0.7-2.0) mmol/L Alkaline Phosphatase (38-126) U/L Albumin/Globulin Ratio (1.60-3.17) Ratio Procalcitonin (0.02-0.50) ng/mL Urine Blood (Negative) 11/12/24 11/13/24 11/13/24 Range/Units 23:30 02:48 02:48 WBC 19.01 H (4.50-10.00) 10*3/uL RBC 4.26 L (4.40-5.60) X 10*6/uL MCV 102.1 H (80.0-97.0) fL MCH 32.4 H (27.0-32.0) pg MCHC 31.7 L (32.0-37.0) g/dL MPV (9.5-12.2) fL Immature Gran # 0.10 H (0.00-0.04) 10*3/uL Neutrophils # 17.62 H (1.80-7.70) 10*3/uL Lymphocytes # 0.52 L (0.90-5.00) 10*3/uL Eosinophils # 0.01 L (0.04-0.35) X 10*3/uL APTT (22.0-30.0) sec Sodium (137-145) mmol/L Chloride (98-107) mmol/L Anion Gap 13.90 H (4.00-12.00) mmol/L Glucose 133 H (74-99) mg/dL POC Glucose (mg/dL) (70-110) mg/dL Hemoglobin A1c (<=6.0) % Plasma Lactic Acid Fan 2.9 H* (0.7-2.0) mmol/L Alkaline Phosphatase (38-126) U/L Albumin/Globulin Ratio 1.27 L (1.60-3.17) Ratio Procalcitonin (0.02-0.50) ng/mL Urine Blood (Negative) 11/13/24 11/13/24 Range/Units 06:56 11:50 WBC (4.50-10.00) 10*3/uL RBC (4.40-5.60) X 10*6/uL MCV (80.0-97.0) fL MCH (27.0-32.0) pg MCHC (32.0-37.0) g/dL MPV (9.5-12.2) fL Immature Gran # (0.00-0.04) 10*3/uL Neutrophils # (1.80-7.70) 10*3/uL Lymphocytes # (0.90-5.00) 10*3/uL Eosinophils # (0.04-0.35) X 10*3/uL APTT (22.0-30.0) sec Sodium (137-145) mmol/L Chloride (98-107) mmol/L Anion Gap (4.00-12.00) mmol/L Glucose (74-99) mg/dL POC Glucose (mg/dL) 127 H 113 H (70-110) mg/dL Hemoglobin A1c (<=6.0) % Plasma Lactic Acid Fan (0.7-2.0) mmol/L Alkaline Phosphatase (38-126) U/L Albumin/Globulin Ratio (1.60-3.17) Ratio Procalcitonin (0.02-0.50) ng/mL Urine Blood (Negative) Microbiology - Last 24 Hours (Table) 11/12/24 14:03 Blood Culture Gram Stain - Preliminary Blood Blood Culture - Preliminary Molecular ID
--- NOTE | 2024-11-13 14:44 | XR ---
EXAMINATION TYPE: XR chest 2V DATE OF EXAM: 11/13/2024 2:14 PM COMPARISON: Chest radiographs from 11/12/2024 CLINICAL INDICATION: Male, 74 years old with history of f/u possible PNA; [facility] TECHNIQUE: XR chest 2V Frontal and lateral views of the chest. FINDINGS: Lungs/Pleura: There is no evidence of pleural effusion, focal consolidation, or pneumothorax. Pulmonary vascularity: Unremarkable. Heart/mediastinum: Cardiomediastinal silhouette is unremarkable. Atherosclerotic calcifications are seen in the aorta. Musculoskeletal: No acute osseous pathology. IMPRESSION: 1. No change from prior, no definitive evidence for pneumonia. If there remains concern consider CT. 2. COPD changes. [facility], , 11/13/2024 2:42 PM
[2024-11-13 16:22] LABS: Glucose,Whole Blood 118 mg/dL (70-110)
[2024-11-13 20:32] LABS: Glucose,Whole Blood 137 mg/dL (70-110)
[2024-11-13] MEDS: TAMSULOSIN 0.4 MG CAP.ER.24H PO SCH (21:39)
[2024-11-14 06:33] LABS: Glucose,Whole Blood 129 mg/dL (70-110)
[2024-11-14 08:59] LABS: Basophils # (A) 0.08 X 10*3/uL (0.00-0.10); Basophils % (A) 0.7 %; Eosinophils # (A) 0.20 X 10*3/uL (0.04-0.35); Eosinophils % (A) 1.8 %; HCT 37.4 % (39.6-50.0); HGB 12.2 g/dL (13.0-17.0); Immature Grans, Automated 0.50 %; Lymphocytes # (A) 1.38 X 10*3/uL (0.90-5.00); Lymphocytes % (A) 12.6 %; MCH 32.2 pg (27.0-32.0); MCHC 32.6 g/dL (32.0-37.0); MCV 98.7 FL (80.0-97.0); Monocytes # (A) 0.96 X 10*3/uL (0.20-1.00); Monocytes % (A) 8.8 %; NRBC Per 100 WBC 0 X 10*3/uL (0.00-0.01); Neutrophils # (A) 8.29 X 10*3/uL (1.80-7.70); Neutrophils % (A) 75.6 %; Platelet Count 214 X 10*3/uL (140-440); RBC 3.79 X 10*6/uL (4.40-5.60); RDW 13.5 % (11.5-14.5); WBC 10.96 X 10*3/uL (4.50-10.00)
[2024-11-14] MEDS: ATORVASTATIN 10 MG TAB PO SCH (09:39)
[2024-11-14 09:51] LABS: ALT 23 U/L (10-49); AST 29 U/L (14-35); Albumin 3.3 g/dL (3.8-4.9); Albumin/Globulin Ratio 1.14 Ratio (1.60-3.17); Alkaline Phosphatase 86 U/L (41-126); Anion Gap 11.70 mmol/L (4.00-12.00); BUN/Creat Ratio 16.50 Ratio (12.00-20.00); Blood Urea Nitrogen 13.2 mg/dL (9.0-27.0); Calcium 9.0 mg/dL (8.7-10.3); Carbon Dioxide 25.3 mmol/L (21.6-31.8); Chloride 96 mmol/L (96-109); Globulin 2.9 g/dL (1.6-3.3); Glucose 126 mg/dL (70-110); Potassium 3.2 mmol/L (3.5-5.5); Sodium 133 mmol/L (135-145); Total Protein 6.2 g/dL (6.2-8.2)
[2024-11-14 11:55] LABS: Glucose,Whole Blood 110 mg/dL (70-110)
--- NOTE | 2024-11-14 11:58 | P.PN ---
Subjective Progress Note Date: 11/14/24 Hospital Course: Patient is a 74 years old male with past medical history of type II DM on Ozem pic last A1c 5.7 reportedly, HLD, morbid obesity BMI 47 HTN, BPH, history of bariatric surgery, MRSA infection, history of groin abscess 11/2023, who presented to the ER for feeling sick, chills. Earlier he was evaluated in the urgent care where his urine was tested and was negative for UTI, patient was sent to the ER. He only complains of chills that started this morning. Some associated lower back pain , that is now resolved but he has discomfort from sitting in a bed. no abdominal pain, dysuria, nausea,vomiting, constipation, diarrhea, skin rashes, joint pain, SOB, CP. No recent traveling, swimming. He does report that he does not always feel the origin to urinate, when he does urinate, he only can get one 1-1/2 caps of urine approximately. He does report that he had MRSA infection in his groin with some abscesses, right now does not have any symptoms or discomfort in that area, on exam there was no signs of lymphadenopathy or skin damage, abscesses. He is currently getting treatment for MRSA colonization with his PCP. Patient was febrile 100.8, tachycardic 130s, blood pressure was elevated 127/63, SpO2 92% on room air. Blood work revealed leukocytosis 16.4, normal hemoglobin and platelet count, sodium 134, normal potassium, bicarb 24, creatinine 0.75, glucose elevated 189, lactic acid 3.5, AST and ALT WNL, UA negative for UTI, viral panel negative. Chest x-ray showed no acute process. Patient was provided with broad-spectrum antibiotics vancomycin and Zosyn, admitted for further management of sepsis with unknown source. Antibiotics changed to vancomycin plus cefepime, will provide with additional 2 L of LR and LR at 125 cc/h for 1 more liter to complete sepsis fluid protocol given that patient's blood pressure was elevated on admission. Blood cultures growing Streptococcus agalactiae, MRSA swabs pending, urine cultures pending, will continue with broad-spectrum antibiotics for now. 11/14/2024: Patient was seen and examined at bedside, RN present during morning rounds. No events overnight, this morning, patient noted significant left lower extremity redness, pain, warmness. On exam signs of cellulitis, borders marked, he denies any other complaints. Tmax 99.7 overnight, he is heart rate is in 50s, blood pressure 109/65, satting well on room air. Leukocytosis trended down significantly to 10.9, hemoglobin 12.2, platelet count normal, sodium 133, potassium 3.2, replaced. Will stop IV fluids. ID consulted. Patient continued on broad-spectrum antibiotics. Pertinent positives and negatives as discussed above, a complete review of systems was performed and all other systems are negative. Vitals Signs Reviewed. General: nontoxic, no distress, appears at stated age, morbidly obese Derm: warm, dry Head: atraumatic, normocephalic, symmetric Eyes: EOMI, no lid lag, anicteric sclera, pupils equal round reactive to light ENT: Nose and ears atraumatic Neck: No thyromegaly, supple Mouth: no lip lesion, mucus membranes moist Cardiovascular: S1S2 reg, no murmur, Lungs: clear to auscultation bilateral, no rhonchi, no rales, no wheeze, no accessory muscle use Abdominal: soft, nontender to palpation, no guarding, no appreciable organom egaly Ext: no gross muscle atrophy, muscle strength muscle strength 5 out of 5 in all 4 extremities, no contractures, bilateral lower extremity edema, left lower extremity warmness, erythema, tenderness, small scratch noted in the lower third of the anterior surface of the left lower extremity, possible source Neuro: CN II-XII grossly intact Psych: Alert, oriented, appropriate affect Assessment and Plan: Sepsis present on admission with fever, tachycardia, leukocytosis, elevated lactic acid, without septic shock, likely due to left lower extremity cellulitis Strep agalactiae bacteremia History of MRSA infection -ID consulted, appreciate recommendations - Continue pharmacy to dose vancomycin, ordered cefepime 2 g every 8 hours SOT 11/12/2024 -Follow-up urine and blood cultures -MRSA swab pending, procalcitonin as above -Telemetry -Tylenol 650 every 6 hours for fever and pain -Daily CBC and BMP Type II DM: Ordered Accu-Cheks, hypoglycemia precautions, SSI Hypertension, resume home meds once reconciled Hyperlipidemia: Not on medications Morbid obesity BMI 47, recommend structured weight loss program, currently on Ozempic, losing weight CODE STATUS: Full code DVT prophylaxis: Lovenox Anticipated discharge date: TBD Anticipated discharge place: home Objective - Vital Signs Vital signs: Vital Signs Temp 97.5 F L 11/14/24 07:35 Pulse 50 L 11/14/24 07:35 Resp 18 11/14/24 07:35 BP 103/65 11/14/24 07:35 Pulse Ox 92 L 11/14/24 07:35 FiO2 Intake & Output 11/13/24 11/14/24 11/14/24 18:59 06:59 18:59 Other: Voiding Method Toilet # Voids 5 1 # Bowel Movements 1 - Labs CBC & Chem 7: 11/14/24 05:47 11/14/24 05:47 Labs: Abnormal Lab Results - Last 24 Hours (Table) 11/13/24 11/13/24 11/14/24 Range/Units 16:21 20:31 05:47 WBC 10.96 H (4.50-10.00) X 10*3/uL RBC 3.79 L (4.40-5.60) X 10*6/uL Hgb 12.2 L (13.0-17.0) g/dL Hct 37.4 L (39.6-50.0) % MCV 98.7 H (80.0-97.0) FL MCH 32.2 H (27.0-32.0) pg Immature Gran # 0.05 H (0.00-0.04) X 10*3/uL Neutrophils # 8.29 H (1.80-7.70) X 10*3/uL Sodium (135-145) mmol/L Potassium (3.5-5.5) mmol/L Glucose (70-110) mg/dL POC Glucose (mg/dL) 118 H 137 H (70-110) mg/dL Albumin (3.8-4.9) g/dL Albumin/Globulin Ratio (1.60-3.17) Ratio 11/14/24 11/14/24 Range/Units 05:47 06:32 WBC (4.50-10.00) X 10*3/uL RBC (4.40-5.60) X 10*6/uL Hgb (13.0-17.0) g/dL Hct (39.6-50.0) % MCV (80.0-97.0) FL MCH (27.0-32.0) pg Immature Gran # (0.00-0.04) X 10*3/uL Neutrophils # (1.80-7.70) X 10*3/uL Sodium 133 L (135-145) mmol/L Potassium 3.2 L (3.5-5.5) mmol/L Glucose 126 H (70-110) mg/dL POC Glucose (mg/dL) 129 H (70-110) mg/dL Albumin 3.3 L (3.8-4.9) g/dL Albumin/Globulin Ratio 1.14 L (1.60-3.17) Ratio Microbiology - Last 24 Hours (Table) 11/12/24 22:41 Nasal Screen MRSA/MSSA - Final Nasal Swab 11/12/24 14:03 Blood Culture Gram Stain - Preliminary Blood Blood Culture - Preliminary Strep agalactiae - (group b) Molecular ID
[2024-11-14] MEDS: POTASSIUM CHLORIDE ER 20 MEQ TAB.ER PO STA (12:45)
[2024-11-14 16:43] LABS: Glucose,Whole Blood 111 mg/dL (70-110)
[2024-11-14 20:18] LABS: Glucose,Whole Blood 121 mg/dL (70-110)
[2024-11-14] MEDS: NIFEdipine XL 30 MG TAB.ER.24 PO SCH (21:17)
--- NOTE | 2024-11-14 23:03 | P.CONS ---
History of Present Illness - Reason for Consult Consult date: 11/14/24 Sepsis, bacteremia Requesting physician: Nancie Patterson - Chief Complaint Fever and chills x few days - History of Present Illness Patient is a 74-year-old male with a past medical history significant for diabetes mellitus hypertension hyperlipidemia sleep apnea prostate disorder history of recurrent MRSA skin soft tissue infection presenting to the hospital 2 days ago for evaluation of fever and chills patient denies having any headache or URI symptoms no chest pain shortness of breath or cough no nausea vomiting no abdominal pain and no diarrhea did not have any urinary symptoms on presentation to the hospital patient did have a temperature of 100.8 F patient was mildly tachycardic not hypotensive or hypoxic no need for supplemental oxygen patient did have elevated white count 16.49 which went up to 19,000 yesterday though was down to 10,000 today creatinine has been normal lactic acid was elevated liver enzymes are normal urine has been negative influenza RSV COVID testing negative patient did have a chest x-ray that was reported negative for any acute infiltrate blood cultures came back positive with Streptococcus agalactiae yesterday patient has been treated with vancomycin and cefepime infectious disease was consulted today for bacteremia and sepsis after the patient has been hospital more than 48 hours Review of Systems Positive point and negatives has been mentioned in the HPI, complete review of systems was performed and all other systems are negative Past Medical History Past Medical History: Diabetes Mellitus, Hyperlipidemia, Hypertension, Prostate Disorder, Sleep Apnea/CPAP/BIPAP Additional Past Medical History / Comment(s): neuropathy History of Any Multi-Drug Resistant Organisms: MRSA Year Discovered:: 11/26/23 MDRO Source:: right thigh/groin Additional Past Surgical History / Comment(s): bilateral knee replacements; Gastric bypass with sleeve; Past Psychological History: No Psychological Hx Reported Smoking Status: Former smoker Past Alcohol Use History: None Reported Past Drug Use History: None Reported Medications and Allergies Home Medications Medication Instructions Recorded Confirmed Type Chlorthalidone [Hygroton] 25 mg PO HS 11/12/24 11/12/24 History Clobetasol Propionate [Temovate 1 applic TOPICAL BID PRN 11/12/24 11/12/24 History 0.05% Cream] Multivit/Iron Sulf/Folic Acid 1 tab PO DAILY 11/12/24 11/12/24 History [Multivitamin with Iron] Mupirocin 2% Oint [Bactroban 2% 1 applic NASAL DIRECTED 11/12/24 11/12/24 History Oint] NIFEdipine XL [Procardia Xl] 30 mg PO HS 11/12/24 11/12/24 History Pregabalin [Lyrica] 150 mg PO BID 11/12/24 11/12/24 History Semaglutide [Ozempic] 2 mg SQ TH 11/12/24 11/12/24 History Simvastatin [Zocor] 20 mg PO DAILY 11/12/24 11/12/24 History Tamsulosin [Flomax] 0.4 mg PO HS 11/12/24 11/12/24 History allopurinoL [Zyloprim] 300 mg PO DAILY 11/12/24 11/12/24 History lisinopriL [Zestril] 10 mg PO DAILY 11/12/24 11/12/24 History Allergies Allergy/AdvReac Type Severity Reaction Status Date / Time vicoden AdvReac Hallucinati Uncoded 11/12/24 16:56 ons Physical Exam Vitals: Vital Signs Temp Pulse Resp BP Pulse Ox 11/14/24 07:35 97.5 F L 50 L 18 103/65 92 L 11/14/24 01:00 99.7 F H 47 L 16 109/62 94 L 11/13/24 19:20 98.4 F 94 16 118/69 95 11/13/24 18:23 99.1 F 95 18 102/57 95 Intake and Output 11/13/24 11/14/24 11/14/24 22:59 06:59 14:59 Other: Voiding Method Toilet # Voids 5 1 # Bowel Movements 1 GENERAL DESCRIPTION: Elderly male lying in bed, no distress. No tachypnea or accessory muscle of respiration use. HEENT: Shows Pallor , no scleral icterus. Oral mucous membrane is dry. No pharyngeal erythema or thrush NECK: Trachea central, no thyromegaly. LUNGS: Unlabored breathing. Clear to auscultation anteriorly. No wheeze or crackle. HEART: S1, S2, regular rate and rhythm. No loud murmur ABDOMEN: Soft, no tenderness , guarding or rigidity, no organomegaly EXTREMITIES: No swelling redness to the left lower extremity which is warm and tender to touch SKIN: No rash, no masses palpable. NEUROLOGICAL: The patient is awake, alert, oriented x3, mood and affect normal. Results CBC & Chem 7: 11/14/24 05:47 11/14/24 05:47 Labs: Abnormal Lab Results - Last 24 Hours (Table) 11/13/24 11/13/24 11/14/24 Range/Units 16:21 20:31 05:47 WBC 10.96 H (4.50-10.00) X 10*3/uL RBC 3.79 L (4.40-5.60) X 10*6/uL Hgb 12.2 L (13.0-17.0) g/dL Hct 37.4 L (39.6-50.0) % MCV 98.7 H (80.0-97.0) FL MCH 32.2 H (27.0-32.0) pg Immature Gran # 0.05 H (0.00-0.04) X 10*3/uL Neutrophils # 8.29 H (1.80-7.70) X 10*3/uL Sodium (135-145) mmol/L Potassium (3.5-5.5) mmol/L Glucose (70-110) mg/dL POC Glucose (mg/dL) 118 H 137 H (70-110) mg/dL Albumin (3.8-4.9) g/dL Albumin/Globulin Ratio (1.60-3.17) Ratio 11/14/24 11/14/24 Range/Units 05:47 06:32 WBC (4.50-10.00) X 10*3/uL RBC (4.40-5.60) X 10*6/uL Hgb (13.0-17.0) g/dL Hct (39.6-50.0) % MCV (80.0-97.0) FL MCH (27.0-32.0) pg Immature Gran # (0.00-0.04) X 10*3/uL Neutrophils # (1.80-7.70) X 10*3/uL Sodium 133 L (135-145) mmol/L Potassium 3.2 L (3.5-5.5) mmol/L Glucose 126 H (70-110) mg/dL POC Glucose (mg/dL) 129 H (70-110) mg/dL Albumin 3.3 L (3.8-4.9) g/dL Albumin/Globulin Ratio 1.14 L (1.60-3.17) Ratio Microbiology - Last 24 Hours (Table) 11/12/24 22:41 Nasal Screen MRSA/MSSA - Final Nasal Swab 11/12/24 14:03 Blood Culture Gram Stain - Preliminary Blood Blood Culture - Preliminary Strep agalactiae - (group b) Molecular ID Assessment and Plan (1) Sepsis Current Visit: Yes Status: Acute Code(s): A41.9 - SEPSIS, UNSPECIFIED ORGANISM SNOMED Code(s): 72838250 (2) Bacteremia Current Visit: Yes Status: Acute Code(s): R78.81 - BACTEREMIA SNOMED Code(s): 6923410 (3) Left leg cellulitis Current Visit: Yes Status: Acute Code(s): L03.116 - CELLULITIS OF LEFT LOWER LIMB SNOMED Code(s): 98683820820871524 Plan: 1patient presented to hospital with sepsis in this patient did have fever tachycardia elevated white count elevated lactic acid meeting currently for SIRS/sepsis versus acute left lower extremity cellulitis in this patient also have evidence of Streptococcus bacteremia likely the pathogen causing his left leg cellulitis. 2I will discontinue vancomycin and cefepime. 3we will apply Home wrap to the left leg to get some of the swelling down it is already been marked. 4we will start the patient on cefazolin 3 g every 8 hour and see clinical response. Multiple question concern has been also remain negative. We will follow on clinical condition and cultures to further adjust medication if needed Thank you for this consultation we will follow the patient along with you Dictation was produced using [employer] dictation software. please excuse any grammatical, word or spelling errors. Time with Patient: Greater than 30
[2024-11-15] MEDS ORDERED: VANCOMYCIN TROUGH DUE 1 EACH MISC MISCELLANE ONE (05:00)
[2024-11-15 06:04] LABS: Glucose,Whole Blood 120 mg/dL (70-110)
[2024-11-15 08:18] LABS: Basophils # (A) 0.08 X 10*3/uL (0.00-0.10); Basophils % (A) 1.1 %; Eosinophils # (A) 0.28 X 10*3/uL (0.04-0.35); Eosinophils % (A) 3.7 %; HCT 38.1 % (39.6-50.0); HGB 12.2 g/dL (13.0-17.0); Immature Grans, Automated 0.50 %; Lymphocytes # (A) 1.24 X 10*3/uL (0.90-5.00); Lymphocytes % (A) 16.5 %; MCH 31.8 pg (27.0-32.0); MCHC 32.0 g/dL (32.0-37.0); MCV 99.2 FL (80.0-97.0); Monocytes # (A) 0.70 X 10*3/uL (0.20-1.00); Monocytes % (A) 9.3 %; NRBC Per 100 WBC 0 X 10*3/uL (0.00-0.01); Neutrophils # (A) 5.16 X 10*3/uL (1.80-7.70); Neutrophils % (A) 68.9 %; Platelet Count 219 X 10*3/uL (140-440); RBC 3.84 X 10*6/uL (4.40-5.60); RDW 13.3 % (11.5-14.5); WBC 7.50 X 10*3/uL (4.50-10.00)
[2024-11-15 08:36] LABS: ALT 26 U/L (10-49); AST 33 U/L (14-35); Albumin 3.3 g/dL (3.8-4.9); Albumin/Globulin Ratio 1.14 Ratio (1.60-3.17); Alkaline Phosphatase 85 U/L (41-126); Anion Gap 11.00 mmol/L (4.00-12.00); BUN/Creat Ratio 14.62 Ratio (12.00-20.00); Blood Urea Nitrogen 11.7 mg/dL (9.0-27.0); Calcium 9.1 mg/dL (8.7-10.3); Carbon Dioxide 26.0 mmol/L (21.6-31.8); Chloride 97 mmol/L (96-109); Globulin 2.9 g/dL (1.6-3.3); Glucose 122 mg/dL (70-110); Potassium 3.6 mmol/L (3.5-5.5); Sodium 134 mmol/L (135-145); Total Protein 6.2 g/dL (6.2-8.2)
[2024-11-15 11:38] LABS: Glucose,Whole Blood 84 mg/dL (70-110)
--- NOTE | 2024-11-15 16:54 | P.PN ---
Subjective Progress Note Date: 11/15/24 Patient was seen and examined. Improved redness. No complaints. CBC and CMP significant for RBC 3.84, Hg 12.2, Hct 38.1, MCV 99.2, Na 134, glu 122, alb 3.3. General: non toxic, no distress, appears at stated age Derm: warm, dry Head: atraumatic, normocephalic, symmetric Eyes: EOMI, no lid lag, anicteric sclera Mouth: no lip lesion, mucus membranes moist Cardiovascular: S1S2 reg, no murmur Lungs: Decreased BS bilateral, no rhonchi, no rales , no accessory muscle use Ext: no gross muscle atrophy, no edema, no contractures, Erythema LLE (improved from outline) Neuro: no focal neuro deficits Psych: Alert, oriented, appropriate affect Based on my assessment of this patient, this patient meets a high complexity level of care. Sepsis secondary to LLE cellulitis: ID on board. Continue Cefzolin. Repeat BCx ordered today to ensure bacteremia is cleared. Strep bacteremia likely due to above. Type II DM: ISS + Accuchecks ACHS along with hypoglycemic precautions. Hypertension: Lisinopril 10 mg PO QD. Chlorthalidone 25 mg PO QHS. Nifedipine 30 mg PO QHS. BPH: Flomax 0.4 mg PO QHS. Hyperlipidemia Morbid obesity BMI 47: Structured weight loss program. CODE STATUS: FULL CODE DVT Prophylaxis: Lovenox SQ GI Prophylaxis: Designated medical POA if patient is not able to make medical decisions for themselves: I have reviewed the following business systems consultant notes: ID. I have reviewed the results of the following tests: CBC, CMP, BCx. I have ordered the following tests: I have discussed the care of this patient with the following independent historian: I have independently interpreted the following test below: I have discussed the management of this patient with the following physician: Objective - Vital Signs Vital signs: Vital Signs Temp 97.7 F 11/15/24 13:36 Pulse 77 11/15/24 13:36 Resp 20 11/15/24 13:36 BP 92/57 11/15/24 13:36 Pulse Ox 95 11/15/24 13:36 FiO2 Intake & Output 11/14/24 11/15/24 11/15/24 18:59 06:59 18:59 Other: Voiding Method Toilet Toilet # Voids 3 1 # Bowel Movements 2 - Labs CBC & Chem 7: 11/15/24 02:54 11/15/24 02:54 Labs: Abnormal Lab Results - Last 24 Hours (Table) 11/14/24 11/15/24 11/15/24 Range/Units 20:10 02:54 02:54 RBC 3.84 L (4.40-5.60) X 10*6/uL Hgb 12.2 L (13.0-17.0) g/dL Hct 38.1 L (39.6-50.0) % MCV 99.2 H (80.0-97.0) FL Sodium 134 L (135-145) mmol/L Glucose 122 H (70-110) mg/dL POC Glucose (mg/dL) 121 H (70-110) mg/dL Albumin 3.3 L (3.8-4.9) g/dL Albumin/Globulin Ratio 1.14 L (1.60-3.17) Ratio 11/15/24 Range/Units 06:03 RBC (4.40-5.60) X 10*6/uL Hgb (13.0-17.0) g/dL Hct (39.6-50.0) % MCV (80.0-97.0) FL Sodium (135-145) mmol/L Glucose (70-110) mg/dL POC Glucose (mg/dL) 120 H (70-110) mg/dL Albumin (3.8-4.9) g/dL Albumin/Globulin Ratio (1.60-3.17) Ratio Microbiology - Last 24 Hours (Table) 11/12/24 14:03 Blood Culture Gram Stain - Final Blood Blood Culture - Final Strep agalactiae - (group b) Molecular ID
[2024-11-15 17:06] LABS: Glucose,Whole Blood 116 mg/dL (70-110)
--- NOTE | 2024-11-15 18:05 | P.PN ---
Subjective Progress Note Date: 11/15/24 Patient is a 74-year-old male with a past medical history significant for diabetes mellitus hypertension hyperlipidemia sleep apnea prostate disorder history of recurrent MRSA skin soft tissue infection presenting to the hospital 2 days ago for evaluation of fever and chills patient denies having any headache or URI symptoms no chest pain shortness of breath or cough no nausea vomiting no abdominal pain and no diarrhea did not have any urinary symptoms on presentation to the hospital patient did have a temperature of 100.8 F patient was mildly tachycardic not hypotensive or hypoxic no need for supplemental oxygen patient did have elevated white count 16.49 which went up to 19,000 yesterday though was down to 10,000 today creatinine has been normal lactic acid was elevated liver enzymes are normal urine has been negative influenza RSV COVID testing negative patient did have a chest x-ray that was reported negative for any acute infiltrate blood cultures came back positive with Streptococcus agalactiae yesterday patient has been treated with vancomycin and cefepime infectious disea se was consulted today for bacteremia and sepsis after the patient has been hospital more than 48 hours On today's evaluation 11/15/2024 patient is afebrile, and on room air. No complaints of shortness of breath, mild cough, nausea, vomiting. No complaints of leg pain. Erythema improved. WBC 7.5, creatinine 0.8. Repeat blood cultures pending. Objective - Vital Signs Vital signs: Vital Signs Temp 97.9 F 11/15/24 07:19 Pulse 75 11/15/24 07:19 Resp 16 11/15/24 07:19 BP 96/58 11/15/24 07:19 Pulse Ox 95 11/15/24 07:19 FiO2 Intake & Output 11/14/24 11/15/24 11/15/24 18:59 06:59 18:59 Other: Voiding Method Toilet Toilet # Voids 3 1 # Bowel Movements 2 - Exam GENERAL DESCRIPTION: Elderly male lying in bed, no distress. No tachypnea or accessory muscle of respiration use. LUNGS: Unlabored breathing. Clear to auscultation anteriorly. No wheeze or crackle. HEART: S1, S2, regular rate and rhythm. No loud murmur ABDOMEN: Soft, no tenderness , guarding or rigidity, no organomegaly EXTREMITIES: No swelling redness to the left lower extremity which is warm and non-tender to touch SKIN: No rash, no masses palpable. NEUROLOGICAL: The patient is awake, alert, oriented x3, mood and affect normal. - Labs CBC & Chem 7: 11/15/24 02:54 11/15/24 02:54 Labs: Abnormal Lab Results - Last 24 Hours (Table) 11/14/24 11/14/24 11/15/24 Range/Units 16:41 20:10 02:54 RBC 3.84 L (4.40-5.60) X 10*6/uL Hgb 12.2 L (13.0-17.0) g/dL Hct 38.1 L (39.6-50.0) % MCV 99.2 H (80.0-97.0) FL Sodium (135-145) mmol/L Glucose (70-110) mg/dL POC Glucose (mg/dL) 111 H 121 H (70-110) mg/dL Albumin (3.8-4.9) g/dL Albumin/Globulin Ratio (1.60-3.17) Ratio 11/15/24 11/15/24 Range/Units 02:54 06:03 RBC (4.40-5.60) X 10*6/uL Hgb (13.0-17.0) g/dL Hct (39.6-50.0) % MCV (80.0-97.0) FL Sodium 134 L (135-145) mmol/L Glucose 122 H (70-110) mg/dL POC Glucose (mg/dL) 120 H (70-110) mg/dL Albumin 3.3 L (3.8-4.9) g/dL Albumin/Globulin Ratio 1.14 L (1.60-3.17) Ratio Microbiology - Last 24 Hours (Table) 11/12/24 14:03 Blood Culture Gram Stain - Final Blood Blood Culture - Final Strep agalactiae - (group b) Molecular ID 11/12/24 22:41 Nasal Screen MRSA/MSSA - Final Nasal Swab Assessment and Plan (1) Bacteremia Current Visit: Yes Status: Acute Code(s): R78.81 - BACTEREMIA SNOMED Code( s): 3514738 (2) Left leg cellulitis Current Visit: Yes Status: Acute Code(s): L03.116 - CELLULITIS OF LEFT LOWER LIMB SNOMED Code(s): 73530687850427719 (3) Sepsis Current Visit: Yes Status: Acute Code(s): A41.9 - SEPSIS, UNSPECIFIED ORGANISM SNOMED Code(s): 71733621 Plan: 1patient presented to hospital with sepsis in this patient did have fever tachycardia elevated white count elevated lactic acid meeting currently for SIRS/sepsis versus acute left lower extremity cellulitis in this patient also have evidence of Streptococcus bacteremia likely the pathogen causing his left leg cellulitis. 2I will discontinue vancomycin and cefepime. 3we will apply Home wrap to the left leg to get some of the swelling down it is already been marked. 4we will start the patient on cefazolin 3 g every 8 hour, clinically improving, continue to monitor. Repeat blood culture pending. Tom Carney MD Internal Medicine Resident, PGY2 Infectious disease service Patient was personally seen and examined care discussed in detail with the resident physician documentation reviewed and agree, patient had left lower extremity swelling redness slightly decreased patient white count normalized we will keep the patient on cefazolin for another 24 to 48 hours before switching him to oral antibiotics orlin ohara MD Dictation was produced using [employer] dictation software. please excuse any grammatical, word or spelling errors. Time with Patient: Less than 30
[2024-11-15 20:36] LABS: Glucose,Whole Blood 149 mg/dL (70-110)
[2024-11-15] MEDS: CHLORTHALIDONE 25 MG TAB PO SCH (20:40)
[2024-11-16 06:06] LABS: Glucose,Whole Blood 103 mg/dL (70-110)
[2024-11-16] MEDS: ENOXAPARIN 40 MG/0.4 ML SYRINGE SQ SCH (08:49)
[2024-11-16 11:27] LABS: Glucose,Whole Blood 118 mg/dL (70-110)
--- NOTE | 2024-11-16 15:22 | P.PN ---
Subjective Progress Note Date: 11/16/24 Patient is a 74-year-old male with a past medical history significant for diabetes mellitus hypertension hyperlipidemia sleep apnea prostate disorder history of recurrent MRSA skin soft tissue infection presenting to the hospital 2 days ago for evaluation of fever and chills patient denies having any headache or URI symptoms no chest pain shortness of breath or cough no nausea vomiting no abdominal pain and no diarrhea did not have any urinary symptoms on presentation to the hospital patient did have a temperature of 100.8 F patient was mildly tachycardic not hypotensive or hypoxic no need for supplemental oxygen patient did have elevated white count 16.49 which went up to 19,000 yesterday though was down to 10,000 today creatinine has been normal lactic acid was elevated liver enzymes are normal urine has been negative influenza RSV COVID testing negative patient did have a chest x-ray that was reported negative for any acute infiltrate blood cultures came back positive with Streptococcus agalactiae yesterday patient has been treated with vancomycin and cefepime infectious disea se was consulted today for bacteremia and sepsis after the patient has been hospital more than 48 hours On today's evaluation 11/16/2024 patient is afebrile, and on room air. No complaints of shortness of breath, mild cough, nausea, vomiting. No complaints of leg pain. Erythema improved. No new labs. Repeat blood cultures negative thus far. Objective - Vital Signs Vital signs: Vital Signs Temp 97.8 F 11/16/24 08:00 Pulse 62 11/16/24 08:00 Resp 18 11/16/24 08:00 BP 90/61 11/16/24 08:00 Pulse Ox 97 11/16/24 08:00 FiO2 Intake & Output 11/15/24 11/16/24 11/16/24 18:59 06:59 18:59 Intake Total 500 Balance 500 Intake: Oral 500 Other: Voiding Method Toilet # Voids 1 3 - Exam GENERAL DESCRIPTION: Elderly male lying in bed, no distress. No tachypnea or accessory muscle of respiration use. LUNGS: Unlabored breathing. Clear to auscultation anteriorly. No wheeze or crackle. HEART: S1, S2, regular rate and rhythm. No loud murmur ABDOMEN: Soft, no tenderness , guarding or rigidity, no organomegaly EXTREMITIES: No swelling redness to the left lower extremity which is warm and non-tender to touch SKIN: No rash, no masses palpable. - Labs CBC & Chem 7: 11/15/24 02:54 11/15/24 02:54 Labs: Abnormal Lab Results - Last 24 Hours (Table) 11/15/24 11/15/24 Range/Units 17:04 20:35 POC Glucose (mg/dL) 116 H 149 H (70-110) mg/dL Microbiology - Last 24 Hours (Table) 11/12/24 14:03 Blood Culture Gram Stain - Final Blood Blood Culture - Final Strep agalactiae - (group b) Molecular ID Assessment and Plan (1) Bacteremia Current Visit: Yes Status: Acute Code(s): R78.81 - BACTEREMIA SNOMED Code(s): 8891594 (2) Left leg cellulitis Current Visit: Yes Status: Acute Code(s): L03.116 - CELLULITIS OF LEFT LOWER LIMB SNOMED Code(s): 26885011526301360 (3) Sepsis Current Visit: Yes Status: Acute Code(s): A41.9 - SEPSIS, UNSPECIFIED ORGANISM SNOMED Code(s): 89283701 Plan: 1patient presented to hospital with sepsis in this patient did have fever tachycardia elevated white count elevated lactic acid meeting currently for SIRS/sepsis versus acute left lower extremity cellulitis in this patient also have evidence of Streptococcus bacteremia likely the pathogen causing his left leg cellulitis. 2I will discontinue vancomycin and cefepime. 3we will apply Home wrap to the left leg to get some of the swelling down it is already been marked. 4we will continue the patient on cefazolin 3 g every 8 hour, clinically improving, continue to monitor. Repeat blood culture negative thus far. With continued clinical improvement, he may discharged on oral Keflex in 1-2 days. Tom Carney MD Internal Medicine Resident, PGY2 Infectious disease service Patient was personally seen and examined care discussed in detail with the resident physician documentation reviewed and agree, the patient did have resolution of his fever white count normalized blood repeat so far negative we w ill continue the patient on IV cefazolin for another 24-hour hopefully transition to oral antibiotic tomorrow care has been discussed detail with the patient and the at the bedside multiple question answered orlin ohara MD Dictation was produced using [employer] software. please excuse any grammatical, word or spelling errors. Time with Patient: Less than 30
[2024-11-16 16:49] LABS: Glucose,Whole Blood 110 mg/dL (70-110)
[2024-11-16 20:22] LABS: Glucose,Whole Blood 113 mg/dL (70-110)
[2024-11-17 03:46] LABS: HCT 37.3 % (39.6-50.0); HGB 12.3 g/dL (13.0-17.0); MCH 32.3 pg (27.0-32.0); MCHC 33.0 g/dL (32.0-37.0); MCV 97.9 fL (80.0-97.0); Platelet Count 246 10*3/uL (140-440); RBC 3.81 10*6/uL (4.40-5.60); RDW 13.1 % (11.5-14.5); WBC 6.48 10*3/uL (4.50-10.00)
[2024-11-17 04:14] LABS: African American GFR (CKD) >90 (>60 ml/min/1.73 sqM); Anion Gap 9 mmol/L; Blood Urea Nitrogen 12 mg/dL (9-20); Calcium 9.7 mg/dL (8.4-10.2); Carbon Dioxide 28 mmol/L (22-30); Chloride 97 mmol/L (98-107); Glucose 100 mg/dL (74-99); Non-African American GFR(CKD) >90 (>60 ml/min/1.73 sqM); Potassium 3.4 mmol/L (3.5-5.1); Sodium 134 mmol/L (137-145)
[2024-11-17 05:53] LABS: Glucose,Whole Blood 107 mg/dL (70-110)
[2024-11-17 08:46] VITALS: BP 114/75; PULSE 53; RESP 16; TEMP 97.7
[2024-11-17] MEDS: POTASSIUM CHLORIDE ER 20 MEQ TAB.ER PO STA (10:49)
--- NOTE | 2024-11-17 11:18 | P.DS ---
Providers Date of admission: 11/12/24 15:46 Expected date of discharge: 11/17/24 Attending physician: Chad Jauregui Consults: 11/14/24 08:14 Consult Physician Routine Consulting Provider: Ish Turpin Consult Reason/Comments: strep agalactiae bacteremia, sepsis on admission Do you want consulting provider notified?: Yes Primary care physician: Physician Nonstaff Hospital Course: 74 year old M with PMH of DM, HLD, morbid obesity BMI 47, HTN, BPH, HLD presents to the ED for LLE cellulitis. In the ED he underwent extensive evaluation. Tmax 100.8F, BP 177/63, HR 133, RR 38, 96% on RA. Labs significant for WBC 16.49, MCV 98.9, APTT 21.6, Na 134, Cl 96, glu 199, Lactic acid 3.5-2, alk phos 127, Procal 1.56. UA trace blood. COVID, RSV, FLu neg. CXR neg. EKG sinus tachycardia rate of 129. Started on Vancomycin and admitted for further workup and management. BCx came back + for strep agalactiae. ID consulted, antibiotics switched to Cefzolin. Repeat BCx negative. 11/17 Patient was seen and examined. Feeling well. Discharge Plan: Discussed with Юлия Fuchs x 10 days. Follow up with PCP within 1-[address] Turpin within 1 week of discharge. General: non toxic, no distress, appears at stated age Derm: warm, dry Head: atraumatic, normocephalic, symmetric Eyes: EOMI, no lid lag, anicteric sclera Mouth: no lip lesion, mucus membranes moist Cardiovascular: S1S2 reg, no murmur Lungs: Decreased BS bilateral, no rhonchi, no rales , no accessory muscle use Ext: no gross muscle atrophy, no edema, no contractures, Erythema LLE (improved from outline) Neuro: no focal neuro deficits Psych: Alert, oriented, appropriate affect Discharge Diagnosis: Sepsis secondary to LLE cellulitis Strep bacteremia likely due to above. Type II DM Hypertension BPH Hyperlipidemia Morbid obesity BMI 47 This complex discharge took 35 minutes to complete. Patient Condition at Discharge: Stable Plan - Discharge Summary Discharge Rx Participant: No New Discharge Prescriptions: New Acetaminophen Tab [Tylenol] 650 mg PO Q6HR PRN tab PRN Reason: Mild Pain Or Fever > 100.5 Cephalexin [Keflex] 500 mg PO Q6HR 10 Days #40 cap Continue Tamsulosin [Flomax] 0.4 mg PO HS NIFEdipine XL [Procardia XL] 30 mg PO HS Mupirocin 2% Oint [Bactroban 2% Oint] 1 applic NASAL DIRECTED lisinopriL [Zestril] 10 mg PO DAILY Chlorthalidone [Hygroton] 25 mg PO HS Semaglutide [Ozempic] 2 mg SQ TH Multivit/Iron Sulf/Folic Acid [Multivitamin with Iron] 1 tab PO DAILY Simvastatin [Zocor] 20 mg PO DAILY allopurinoL [Zyloprim] 300 mg PO DAILY Clobetasol Propionate [Temovate 0.05% Cream] 1 applic TOPICAL BID PRN PRN Reason: FLARES Pregabalin [Lyrica] 150 mg PO BID Discharge Medication List Chlorthalidone [Hygroton] 25 mg PO HS 11/12/24 [History] Clobetasol Propionate [Temovate 0.05% Cream] 1 applic TOPICAL BID PRN 11/12/24 [History] Multivit/Iron Sulf/Folic Acid [Multivitamin with Iron] 1 tab PO DAILY 11/12/24 [History] Mupirocin 2% Oint [Bactroban 2% Oint] 1 applic NASAL DIRECTED 11/12/24 [History] NIFEdipine XL [Procardia XL] 30 mg PO HS 11/12/24 [History] Pregabalin [Lyrica] 150 mg PO BID 11/12/24 [History] Semaglutide [Ozempic] 2 mg SQ TH 11/12/24 [History] Simvastatin [Zocor] 20 mg PO DAILY 11/12/24 [History] Tamsulosin [Flomax] 0.4 mg PO HS 11/12/24 [History] allopurinoL [Zyloprim] 300 mg PO DAILY 11/12/24 [History] lisinopriL [Zestril] 10 mg PO DAILY 11/12/24 [History] Acetaminophen Tab [Tylenol] 650 mg PO Q6HR PRN tab 11/17/24 [Rx] Cephalexin [Keflex] 500 mg PO Q6HR 10 Days #40 cap 11/17/24 [Rx] Follow up Appointment(s)/Referral(s): Nonstaff,Physician [Primary Care Provider] - 1-2 days Ish Turpin MD [STAFF PHYSICIAN] - 1 Week Discharge Disposition: HOME SELF-CARE
[2024-11-17 11:57] LABS: Glucose,Whole Blood 84 mg/dL (70-110)
--- NOTE | 2024-11-17 16:56 | P.PN ---
Subjective Progress Note Date: 11/17/24 Patient is a 74-year-old male with a past medical history significant for diabetes mellitus hypertension hyperlipidemia sleep apnea prostate disorder history of recurrent MRSA skin soft tissue infection presenting to the hospital 2 days ago for evaluation of fever and chills patient denies having any headache or URI symptoms no chest pain shortness of breath or cough no nausea vomiting no abdominal pain and no diarrhea did not have any urinary symptoms on presentation to the hospital patient did have a temperature of 100.8 F patient was mildly tachycardic not hypotensive or hypoxic no need for supplemental oxygen patient did have elevated white count 16.49 which went up to 19,000 yesterday though was down to 10,000 today creatinine has been normal lactic acid was elevated liver enzymes are normal urine has been negative influenza RSV COVID testing negative patient did have a chest x-ray that was reported negative for any acute infiltrate blood cultures came back positive with Streptococcus agalactiae yesterday patient has been treated with vancomycin and cefepime infectious disea se was consulted today for bacteremia and sepsis after the patient has been hospital more than 48 hours On today's evaluation 11/17/2024 patient is afebrile, and on room air. No complaints of shortness of breath, mild cough, nausea, vomiting. No complaints of leg pain. Erythema improved. Labs WBC 6.4, creatinine 0.63. Repeat blood cultures negative thus far. Objective - Vital Signs Vital signs: Vital Signs Temp 97.7 F 11/17/24 07:47 Pulse 53 L 11/17/24 07:47 Resp 16 11/17/24 07:47 BP 114/75 11/17/24 07:47 Pulse Ox 96 11/17/24 07:47 FiO2 Intake & Output 11/16/24 11/17/24 11/17/24 18:59 06:59 18:59 Intake Total 2700 Balance 2700 Intake: Oral 2700 Other: Voiding Method Toilet Toilet # Voids 3 6 3 # Bowel Movements 1 1 - Exam GENERAL DESCRIPTION: Elderly male lying in bed, no distress. No tachypnea or accessory muscle of respiration use. LUNGS: Unlabored breathing. Clear to auscultation anteriorly. No wheeze or crackle. HEART: S1, S2, regular rate and rhythm. No loud murmur ABDOMEN: Soft, no tenderness , guarding or rigidity, no organomegaly EXTREMITIES: No swelling redness to the left lower extremity which is warm and non-tender to touch SKIN: No rash, no masses palpable. - Labs CBC & Chem 7: 11/17/24 03:12 11/17/24 03:12 Labs: Abnormal Lab Results - Last 24 Hours (Table) 11/16/24 11/16/24 11/17/24 Range/Units 11:26 20:21 03:12 RBC 3.81 L (4.40-5.60) 10*6/uL Hgb 12.3 L (13.0-17.0) g/dL Hct 37.3 L (39.6-50.0) % MCV 97.9 H (80.0-97.0) fL MCH 32.3 H (27.0-32.0) pg MPV 9.0 L (9.5-12.2) fL Sodium (137-145) mmol/L Potassium (3.5-5.1) mmol/L Chloride (98-107) mmol/L Creatinine (0.66-1.25) mg/dL Glucose (74-99) mg/dL POC Glucose (mg/dL) 118 H 113 H (70-110) mg/dL 11/17/24 Range/Units 03:12 RBC (4.40-5.60) 10*6/uL Hgb (13.0-17.0) g/dL Hct (39.6-50.0) % MCV (80.0-97.0) fL MCH (27.0-32.0) pg MPV (9.5-12.2) fL Sodium 134 L (137-145) mmol/L Potassium 3.4 L (3.5-5.1) mmol/L Chloride 97 L (98-107) mmol/L Creatinine 0.63 L (0.66-1.25) mg/dL Glucose 100 H (74-99) mg/dL POC Glucose (mg/dL) (70-110) mg/dL Microbiology - Last 24 Hours (Table) 11/15/24 02:54 Blood Culture - Preliminary Blood Assessment and Plan (1) Bacteremia Status: Acute Code(s): R78.81 - BACTEREMIA SNOMED Code(s): 8945349 (2) Left leg cellulitis Status: Acute Code(s): L03.116 - CELLULITIS OF LEFT LOWER LIMB SNOMED Code(s): 15877774869755805 (3) Sepsis Status: Acute Code(s): A41.9 - SEPSIS, UNSPECIFIED ORGANISM SNOMED Code(s): 94356962 Plan: 1patient presented to hospital with sepsis in this patient did have fever tachycardia elevated white count elevated lactic acid meeting currently for SIRS/sepsis versus acute left lower extremity cellulitis in this patient also have evidence of Streptococcus bacteremia likely the pathogen causing his left leg cellulitis. 2I will discontinue vancomycin and cefepime. 3we will apply Home wrap to the left leg to get some of the swelling down it is already been marked. 4we will transition the patient from cefazolin 3 g every 8 hour to oral Keflex and may be discharged on 10 day course. He is afebrile and WBC has normalized. repeat blood culture negative thus far. Tom Carney MD Internal Medicine Resident, PGY2 Infectious disease service Patient was personally seen and examined care discussed in detail with the resident physician documentation reviewed and agree, patient seen-overall clinical improvement the patient is afebrile white count has normalized patient be transition to oral Keflex x 10 days on discharge this has been discussed in detail with the resident physician, patient as well as admitting physician working on discharge Dictation was produced using [email or web address] dictation software. please excuse any grammatical, word or spelling errors. Time with Patient: Less than 30
--- NOTE | 2024-11-22 14:01 | CDI ---
Documentation Clarification Form Date: 11/22/2024 01:48:56 PM From: Vernell Burton Admit Date: 11/12/2024 03:46:00 PM Patient Name: Cristian Echavarria Visit Number: [id number] Discharge Date: 11/17/2024 02:05:00 PM ATTENTION: The Clinical Documentation Specialists (CDI) and [facility] Coding Staff appreciate your assistance in clarifying documentation. Please respond to the clarification below the line at the bottom and electronically sign. The CDI & [facility] Coding staff will review the response and follow-up if needed. Please note: Queries are made part of the Legal Health Record. If you have any questions, please contact the author of this message via ITS. Doctor/Provider: Nancie Patterson Sepsis secondary to LLE cellulitis is documented in [facility]. Patient also has diabetes type II . ease clarify if there is a relationship between the diagnosis of LLE cellulitis and diabetes type II. History/Risk Factors: Diabetes, morbid obesity, neuropathy Treatment: Ozempic, Insulin, Vancomycin, Cefepime, Zosyn Please clarify the relationship, if any, which is clinically appropriate for this patient: [ ] Cellultis due to diabetes type II [ x] Cellulitis not due to diabetes type II [ ] Other explanation of clinical findings (please specify) [ ] Unable to determine (no explanation for clinical findings) MTDD
== END 2024-11-17 14:05 | disposition home or self-care (01) | DRG 872 ==
LOC: EC 13:25 → 4SSUR 15:46
PROVIDERS: ADMIT Student in an Organized Health Care Education/Training Program; ATTEND Student in an Organized Health Care Education/Training Program
DX: A40.1 Sepsis due to streptococcus, group B (principal); E87.20 Acidosis, unspecified; E11.40 Type 2 diabetes mellitus with diabetic neuropathy, unspecified; E66.01 Morbid (severe) obesity due to excess calories; I10 Essential (primary) hypertension; Z68.42 Body mass index [BMI] 45.0-49.9, adult; L03.116 Cellulitis of left lower limb; Z79.85 Long-term (current) use of injectable non-insulin antidiabetic drugs; E78.5 Hyperlipidemia, unspecified; Z87.440 Personal history of urinary (tract) infections; N40.0 Benign prostatic hyperplasia without lower urinary tract symptoms; Z22.322 Carrier or suspected carrier of Methicillin resistant Staphylococcus aureus; Z79.899 Other long term (current) drug therapy; Z96.653 Presence of artificial knee joint, bilateral; Z98.84 Bariatric surgery status; Z11.52 Encounter for screening for COVID-19; Z88.5 Allergy status to narcotic agent; G47.30 Sleep apnea, unspecified
CPT/HCPCS: 36415; 71046; 80048; 80053; 81001; 83036; 83605; 84145; 85025; 85027; 85610; 85730; 87040; 87070; 87077; 87186; 87636; 93005; 96361; 96365; 96366; 96367; 99285